=== PATIENT | female | born 1985 | race American Indian/Alaskan Native ===

== ENCOUNTER 2017-05-31 00:47 | Emergency (ER) | payer SELFPAY ==
--- NOTE | 2017-05-31 06:41 | XRay Report ---
FINAL REPORT PROCEDURE: XR CHEST ROUTINE 2V TECHNIQUE: PA and lateral chest radiographs were obtained. CPT 06483 HISTORY: cough COMPARISON: No prior studies are available for comparison. FINDINGS: Heart: Normal. Mediastinum/Vessels: Normal. Lungs/Pleural space: Normal. Bony thorax: No acute osseous abnormality. Other: IMPRESSION: Normal examination.
[2017-05-31] MEDS ORDERED: DUONEB *Not for PRN Use IH ONE (07:18)
[2017-05-31] MEDS ORDERED: TYLENOL PO ONE (07:18)
[2017-05-31] MEDS ORDERED: ZOFRAN ODT PO ONE (07:19)
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
[2017-05-31 08:09] VITALS: BP 99/61
== END 2017-05-31 08:07 | disposition home or self-care (01) ==
LOC: ED 00:47
DX: B34.9 Viral infection, unspecified (principal); E11.9 Type 2 diabetes mellitus without complications; Z93.0 Tracheostomy status; Z88.0 Allergy status to penicillin; Z91.010 Allergy to peanuts
CPT/HCPCS: 71046; 94640; Q0162